=== PATIENT | female | born 1945 | race Caucasian/White ===

== ENCOUNTER 2016-10-29 20:35 | Observation (INO) | payer OTHER ==
[~2016-10-29] VITALS: Ht 170.2 cm; Wt 76.5 kg
[~2016-10-29 20:35] MED LIST: ASPIR 8181 M1 PO; ATORVASTATIN CA80 MG PO; CEFTIN250 MG PO; CEFTIN500 MG PO; CIPRO500 MG PO; CIPROFLOXACIN500 M1 PO; COZAAR25 MG PO; D-VERT25 MG PO; DAILY VITE1 EAC1 PO; DONEPEZIL HCL23 MG PO; FERROUS SULFAT324 M1 PO; FERROUS SULFAT325 MG PO; FLONASE16 G1 BOTH NARES; FLOVENT 22120 INHALA IH; GEMFIBROZIL600 MG PO; KEFLEX500 MG PO; LANTUS100 UNIT/1 SQ; LEVAQUIN750 MG PO; LEVEMIR100 UNIT/2 SC; LEXAPRO10 MG PO; LIPITOR80 MG PO; LOSARTAN POTASS25 MG PO; LOSARTAN POTASS50 MG PO; MACROBID100 MG PO; MULTIVITAMIN1 EAC1 PO; NAMENDA5 MG PO; NOVOLIN N100 UNITS/ SC; NOVOLOG100 UNIT/1 SQ; OMEPRAZOLE20 MG PO; OMEPRAZOLE40 M1 PO; PAIN & FEVER325 MG PO; PRINIVIL10 MG PO; PROVENTIL,2.5 MG/3 M IH; SEROQUEL300 MG PO; TOFRANIL25 MG PO; VENTOLIN HFA18 GM IH; VESICARE5 MG PO; VITAMIN B12-FO1 EACH PO
[2016-10-29 21:16] LABS: EOSINOPHIL COUNT 0.1 K/uL (0-0.3); HEMATOCRIT 28.2 % (36.0-46.0); IMMATURE GRANULOCYTE (%) 0.3 % (0.0-0.7); INSTRUMENT ABS NEUTROPHIL CT 4.7 K/uL; LYMPHOCYTE COUNT 0.7 K/uL (1.0-2.8); MCH 29.4 PG (29.0-34.0); MCHC 31.9 G/DL (30.0-36.0); MCV 92.2 FL (83-99); MEAN PLAT.VOLUME 10.4 uM^3 (9.5-12.4); MONOCYTE (%) 7.2 % (3-12); MONOCYTE COUNT 0.4 K/uL (0-0.8); NEUTROPHIL (%) 80.3 % (45-76); NEUTROPHIL COUNT 4.7 K/uL (1.8-6.4); PLATELET COUNT 145 K/uL (156-360); RBC DIS.WIDTH-CV 14.3 % (11.8-14.6); RBC DIS.WIDTH-SD 48.8 % (39-53); RED BLOOD COUNT 3.06 M/uL (3.80-5.20); WHITE BLOOD COUNT 5.9 K/uL (4.1-10.2)
[2016-10-29 21:25] LABS: INTER. NORMALIZED RATIO 1.1; PROTHROMBIN TIME 11.2 (9.2-11.2); PTT 29.3 (25-32)
[2016-10-29 21:27] LABS: CHLORIDE 115 mEq/L (99-109); POTASSIUM 3.9 mEq/L (3.7-5.4); SODIUM 141 mEq/L (136-147)
[2016-10-29 21:28] LABS: GLUCOSE 78 mg/dL (70-99)
[2016-10-29 21:30] LABS: ANION GAP 11 MEQ/L (2-14)
[2016-10-29 21:32] LABS: GFR ESTIMATE (CALCULATED) 15 mL/min/
[2016-10-29 21:33] LABS: UREA NITROGEN (BUN) 50 mg/dL (9-23)
[2016-10-29 21:37] LABS: TROP-I INTERPRETATION NEGATIVE; TROPONIN-I < 0.01 ng/mL (0.0-0.30)
[2016-10-29 22:19] LABS: ADD MIUA? YES; BILIRUBIN NEGATIVE; BLOOD LARGE; COLOR AMBER ((YELLOW)); GLUCOSE (STRIP) NEGATIVE; KETONES NEGATIVE; LEUKOCYTES LARGE; NITRITE NEGATIVE; PROTEIN (STRIP) 100; SPECIFIC GRAVITY 1.014 (1.000-1.030); UROBILINOGEN 0.2 MG/DL (0.2-1.0)
[2016-10-29 22:23] LABS: Estimated Average Glucose 166 mg/dL (70-123); HEMOGLOBIN A1c (GLYCOHEMOGLOB) 7.4 % HGB (Below 5.7)
[2016-10-29 22:26] LABS: HDL CHOLESTEROL 33 MG/DL (Desirable>=50); LDL CHOLESTEROL 25 mg/dL (Desirable<100); NON-HDL CHOLESTEROL 34 mg/dL (Desirable<160); TOTAL CHOLESTEROL 67 mg/dL (Desirable<200); TRIGLYCERIDES 44 MG/DL (Normal: <150)
[2016-10-29 22:32] LABS: EPITHELIAL CELLS 2+ /HPF; RED BLOOD CELLS TNTC /HPF (0-5); WHITE BLOOD CELLS TNTC /HPF (0-5)
[2016-10-29 22:33] LABS: BACTERIA 1+ /HPF; MUCUS NONE SEEN /LPF; OTHER RENAL CELLS; UCUL ADDED? YES
[2016-10-30] MEDS ORDERED: LEXAPRO10 MG PO (03:59)
[2016-10-30] MEDS ORDERED: DAILY VITE1 EAC1 PO (03:59)
[2016-10-30] MEDS ORDERED: ASPIR 8181 M1 PO (03:59)
[2016-10-30] MEDS ORDERED: LOSARTAN POTASS50 MG PO (04:00)
[2016-10-30] MEDS ORDERED: FERROCITE324 MG PO (04:00)
[2016-10-30] MEDS ORDERED: OMEPRAZOLE40 M1 PO (04:00)
[2016-10-30] MEDS ORDERED: LIPITOR80 MG PO (04:01)
[2016-10-30] MEDS ORDERED: QUETIAPINE FUM300 MG PO (04:01)
[2016-10-30] MEDS ORDERED: VENTOLIN HFA18 GM IH (04:01)
[2016-10-30] MEDS ORDERED: VESICARE5 MG PO ×2 (04:01→04:02)
[2016-10-30] MEDS ORDERED: ARNUITY ELLIP100 MCG IH (04:02)
[2016-10-30] MEDS ORDERED: LEVEMIR100 UNIT/2 SC (04:04)
[2016-10-30] MEDS ORDERED: NOVOLIN N100 UNITS/ SC (04:04)
[2016-10-30 04:38] VITALS: BP 127/60
[2016-10-30 08:55] VITALS: BP 109/52
[2016-10-30 10:01] LABS: HEMATOCRIT 30.7 % (36.0-46.0); MCH 29.1 PG (29.0-34.0); MCHC 30.9 G/DL (30.0-36.0); MCV 93.9 FL (83-99); MEAN PLAT.VOLUME 10.4 uM^3 (9.5-12.4); PLATELET COUNT 146 K/uL (156-360); RBC DIS.WIDTH-CV 14.5 % (11.8-14.6); RBC DIS.WIDTH-SD 49.6 % (39-53); RED BLOOD COUNT 3.27 M/uL (3.80-5.20); WHITE BLOOD COUNT 6.5 K/uL (4.1-10.2)
[2016-10-30 10:17] LABS: ANION GAP 9 MEQ/L (2-14); CHLORIDE 112 MEQ/L (99-109); MAGNESIUM 1.5 mg/dl (1.3-2.7); POTASSIUM 3.5 MEQ/L (3.7-5.4); SAMPLE HEMOLYSIS CHECK 0; SAMPLE ICTERIC CHECK 0; SAMPLE LIPEMIA CHECK 0; SODIUM 140 MEQ/L (136-147)
[2016-10-30 10:23] LABS: GFR ESTIMATE (CALCULATED) 17 mL/min/; GLUCOSE 80 mg/dL (70-99); UREA NITROGEN (BUN) 47 mg/dL (9-23)
[2016-10-30 10:27] LABS: TROP-I INTERPRETATION NEGATIVE; TROPONIN-I < 0.01 ng/mL (0.0-0.30)
[2016-10-30 10:58] VITALS: BP 126/53
[2016-10-30 11:01] VITALS: BP 132/70
[2016-10-30 11:07] LABS: C DIFF TOXIN NEGATIVE (NEGATIVE)
[2016-10-30 11:13] LABS: PROBE CHECK PASS; SPECIMEN PROCESSING CONTROL PASS
[2016-10-30] MEDS ORDERED: VANTIN200 MG PO (14:39)
== END 2016-10-30 16:10 | disposition home or self-care (01) ==
LOC: EME → EDBD 20:35 → EDOF 10-30 03:04 → 5WEST 10-30 03:04 → EDOF 10-30 03:04 → 5WEST 10-30 04:12
PROVIDERS: Emergency Medicine; Hospitalist
DX: N39.0 Urinary tract infection, site not specified (principal); R29.6 Repeated falls; R42 Dizziness and giddiness; M54.5 Low back pain; E11.9 Type 2 diabetes mellitus without complications; E78.5 Hyperlipidemia, unspecified; K21.9 Gastro-esophageal reflux disease without esophagitis; F03.90 Unspecified dementia, unspecified severity, without behavioral disturbance, psychotic disturbance, mood disturbance, and anxiety; J45.909 Unspecified asthma, uncomplicated; E86.0 Dehydration; I12.9 Hypertensive chronic kidney disease with stage 1 through stage 4 chronic kidney disease, or unspecified chronic kidney disease; N18.3 Chronic kidney disease, stage 3 (moderate); N28.9 Disorder of kidney and ureter, unspecified; R55 Syncope and collapse; M25.512 Pain in left shoulder; D63.1 Anemia in chronic kidney disease; F20.0 Paranoid schizophrenia; N31.9 Neuromuscular dysfunction of bladder, unspecified
CPT/HCPCS: 70450; 71020; 73030; 73502; 80048; 80061; 81003; 83036; 83735; 84484; 85025; 85027; 85610; 85730; 87077; 87086; 87186; 87493; 93005; 99281; 99285; G0378; G8978 GP CK; G8979 CJ; G8980 GP CK; G8987 CK; G8988 GO CJ; G8989 GO CK; J0696; J1644; J7030; J7050

== ENCOUNTER 2016-11-10 20:35 | Inpatient (IN) | payer OTHER ==
[~2016-11-10] VITALS: Ht 170.2 cm; Wt 73.1 kg
[~2016-11-10 20:35] MED LIST changes: +ARNUITY ELLIP100 MCG IH; +FERROCITE324 MG PO; +QUETIAPINE FUM300 MG PO; +VANTIN200 MG PO
[2016-11-10 21:09] LABS: EOSINOPHIL COUNT 0.2 K/uL (0-0.3); HEMATOCRIT 27.7 % (36.0-46.0); IMMATURE GRANULOCYTE (%) 0.3 % (0.0-0.7); INSTRUMENT ABS NEUTROPHIL CT 4.4 K/uL; LYMPHOCYTE COUNT 1.1 K/uL (1.0-2.8); MCH 29.4 PG (29.0-34.0); MCHC 31.4 G/DL (30.0-36.0); MCV 93.6 FL (83-99); MEAN PLAT.VOLUME 10.7 uM^3 (9.5-12.4); MONOCYTE (%) 5.6 % (3-12); MONOCYTE COUNT 0.3 K/uL (0-0.8); NEUTROPHIL (%) 72.7 % (45-76); NEUTROPHIL COUNT 4.4 K/uL (1.8-6.4); PLATELET COUNT 142 K/uL (156-360); RBC DIS.WIDTH-SD 47.6 % (39-53); RED BLOOD COUNT 2.96 M/uL (3.80-5.20)
[2016-11-10 21:24] LABS: CHLORIDE 109 mEq/L (99-109); POTASSIUM 4.3 mEq/L (3.7-5.4); SODIUM 136 mEq/L (136-147)
[2016-11-10 21:26] LABS: GLUCOSE 320 mg/dL (70-99)
[2016-11-10 21:28] LABS: ANION GAP 9 MEQ/L (2-14); TOTAL BILIRUBIN 0.2 mg/dL (0.0-1.0)
[2016-11-10 21:30] LABS: ALKALINE PHOSPHATASE 133 IU/L (3-129); GFR ESTIMATE (CALCULATED) 16 mL/min/
[2016-11-10 21:30] LABS: ADD MIUA? YES; BILIRUBIN NEGATIVE; BLOOD LARGE; COLOR YELLOW ((YELLOW)); GLUCOSE (STRIP) 50; KETONES NEGATIVE; LEUKOCYTES MODERATE; NITRITE NEGATIVE; PROTEIN (STRIP) 30; SPECIFIC GRAVITY 1.012 (1.000-1.030); UROBILINOGEN 0.2 MG/DL (0.2-1.0)
[2016-11-10 21:31] LABS: UREA NITROGEN (BUN) 44 mg/dL (9-23)
[2016-11-10 21:35] LABS: TROP-I INTERPRETATION NEGATIVE; TROPONIN-I < 0.01 ng/mL (0.0-0.30)
[2016-11-10 21:49] LABS: AMORPHOUS URATES CRYSTALS 3+; BACTERIA NONE SEEN /HPF; CASTS NONE SEEN /LPF; CRYSTALS PRESENT; EPITHELIAL CELLS NONE SEEN /HPF; MUCUS NONE SEEN /LPF; RED BLOOD CELLS TNTC /HPF (0-5); UCUL ADDED? NO
[2016-11-11 00:26] LABS: POINT-OF-CARE METER ID UU13113702
[2016-11-11 00:43] VITALS: BP 114/59
[2016-11-11 01:11] LABS: HDL CHOLESTEROL 36 MG/DL (Desirable>=50); LDL CHOLESTEROL 32 mg/dL (Desirable<100); NON-HDL CHOLESTEROL 41 mg/dL (Desirable<160); TOTAL CHOLESTEROL 77 mg/dL (Desirable<200); TRIGLYCERIDES 47 MG/DL (Normal: <150)
[2016-11-11] MEDS ORDERED: NAMENDA5 MG PO (03:41)
[2016-11-11] MEDS ORDERED: ARICEPT23 MG PO (03:42)
[2016-11-11] MEDS ORDERED: COZAAR25 MG PO (03:44)
[2016-11-11 03:45] VITALS: BP 110/59
[2016-11-11 07:08] LABS: ALKALINE PHOSPHATASE 110 IU/L (3-129); ANION GAP 8 MEQ/L (2-14); CHLORIDE 115 MEQ/L (99-109); GFR ESTIMATE (CALCULATED) 18 mL/min/; GLUCOSE 176 mg/dL (70-99); POTASSIUM 4.1 MEQ/L (3.7-5.4); SAMPLE HEMOLYSIS CHECK 0; SAMPLE ICTERIC CHECK 0; SAMPLE LIPEMIA CHECK 0; SODIUM 141 MEQ/L (136-147); TOTAL BILIRUBIN 0.2 MG/DL (0.0-1.0); UREA NITROGEN (BUN) 41 mg/dL (9-23)
[2016-11-11 07:27] LABS: Estimated Average Glucose 174 mg/dL (70-123); HEMOGLOBIN A1c (GLYCOHEMOGLOB) 7.7 % HGB (Below 5.7)
[2016-11-11 07:46] VITALS: BP 151/67
[2016-11-11 09:57] LABS: BASE EXCESS -6.3 mEq/L (-3 to +3); CARBOXY HGB 0 % (0-5); FI02 21 %; METHEMOGLOBIN 1.4 % (0-1.5); PCO2 36 mm Hg (35-45); PO2 81 mm Hg (80-100); SITE RR; pH 7.33 (7.35-7.45)
[2016-11-11 09:58] LABS: COMMENTS - BLOOD GASES A+C+; TOTAL RESP RATE 16 resp/min
[2016-11-11 11:25] VITALS: BP 112/57
[2016-11-11 15:30] VITALS: BP 101/58
[2016-11-11] MEDS ORDERED: IRON325 M1 PO (18:56)
[2016-11-11] MEDS ORDERED: NAMENDA10 MG PO (19:02)
[2016-11-11] MEDS ORDERED: VENTOLIN HFA18 GM IH (19:08)
[2016-11-11 19:44] VITALS: BP 120/57
[2016-11-11 20:49] LABS: POINT-OF-CARE METER ID UU14174225
[2016-11-12] VITALS (7 sets, daily range): BP systolic 108–139; BP diastolic 52–85
[2016-11-12 10:22] LABS: HEMATOCRIT 28.9 % (36.0-46.0); MCH 29.3 PG (29.0-34.0); MCHC 30.8 G/DL (30.0-36.0); MCV 95.1 FL (83-99); MEAN PLAT.VOLUME 11.1 uM^3 (9.5-12.4); PLATELET COUNT 125 K/uL (156-360); RED BLOOD COUNT 3.04 M/uL (3.80-5.20); WHITE BLOOD COUNT 3.8 K/uL (4.1-10.2)
[2016-11-12 10:48] LABS: ANION GAP 9 MEQ/L (2-14); CHLORIDE 114 MEQ/L (99-109); GFR ESTIMATE (CALCULATED) 21 mL/min/; GLUCOSE 187 mg/dL (70-99); POTASSIUM 4.5 MEQ/L (3.7-5.4); SAMPLE HEMOLYSIS CHECK 0; SAMPLE ICTERIC CHECK 0; SAMPLE LIPEMIA CHECK 0; SODIUM 144 MEQ/L (136-147); UREA NITROGEN (BUN) 41 mg/dL (9-23)
[2016-11-12] MEDS ORDERED: FLONASE16 G1 BOTH NARES (11:54)
[2016-11-12] MEDS ORDERED: BALMEX 11.3% D113 GM TP (11:55)
[2016-11-12] MEDS ORDERED: TRAMADOL HCL50 MG PO (11:56)
[2016-11-12 12:21] LABS: POINT-OF-CARE METER ID UU14174225
[2016-11-12 16:46] LABS: UR CREATININE CONCENTRATION 62.8 MG/DL
[2016-11-12 21:17] LABS: POINT-OF-CARE METER ID UU14174225
[2016-11-13 03:44] VITALS: BP 115/62
[2016-11-13 07:06] LABS: EOSINOPHIL (%) 6.4 % (0-5); EOSINOPHIL COUNT 0.3 K/uL (0-0.3); HEMATOCRIT 28.5 % (36.0-46.0); IMMATURE GRANULOCYTE (%) 0.2 % (0.0-0.7); INSTRUMENT ABS NEUTROPHIL CT 2.5 K/uL; LYMPHOCYTE COUNT 1.1 K/uL (1.0-2.8); MCH 29.4 PG (29.0-34.0); MCHC 31.2 G/DL (30.0-36.0); MCV 94.1 FL (83-99); MONOCYTE (%) 5.7 % (3-12); MONOCYTE COUNT 0.2 K/uL (0-0.8); NEUTROPHIL (%) 61.3 % (45-76); NEUTROPHIL COUNT 2.5 K/uL (1.8-6.4); PLATELET COUNT 143 K/uL (156-360); RBC DIS.WIDTH-SD 47.7 % (39-53); RED BLOOD COUNT 3.03 M/uL (3.80-5.20); WHITE BLOOD COUNT 4.1 K/uL (4.1-10.2)
[2016-11-13 07:26] VITALS: BP 130/74
[2016-11-13 07:34] LABS: ANION GAP 7 MEQ/L (2-14); CHLORIDE 114 MEQ/L (99-109); GFR ESTIMATE (CALCULATED) 19 mL/min/; GLUCOSE 144 mg/dL (70-99); MAGNESIUM 1.3 mg/dl (1.3-2.7); POTASSIUM 4.6 MEQ/L (3.7-5.4); SAMPLE HEMOLYSIS CHECK 0; SAMPLE ICTERIC CHECK 0; SAMPLE LIPEMIA CHECK 0; SODIUM 142 MEQ/L (136-147); UREA NITROGEN (BUN) 38 mg/dL (9-23); URIC ACID 6.2 mg/dL (3.1-9.2)
[2016-11-13 07:56] LABS: POINT-OF-CARE METER ID UU14188625
[2016-11-13 11:19] LABS: POINT-OF-CARE METER ID UU14188625
[2016-11-13 11:31] VITALS: BP 125/56
[2016-11-13 15:58] VITALS: BP 109/56
[2016-11-13 17:11] LABS: POINT-OF-CARE METER ID UU14188625
[2016-11-13 20:03] VITALS: BP 142/61
[2016-11-13 23:32] VITALS: BP 136/64
[2016-11-14 03:52] VITALS: BP 139/89
[2016-11-14 06:16] LABS: ANION GAP 8 MEQ/L (2-14); CHLORIDE 112 MEQ/L (99-109); GFR ESTIMATE (CALCULATED) 19 mL/min/; GLUCOSE 165 mg/dL (70-99); POTASSIUM 4.4 MEQ/L (3.7-5.4); SAMPLE HEMOLYSIS CHECK 0; SAMPLE ICTERIC CHECK 0; SAMPLE LIPEMIA CHECK 0; SODIUM 142 MEQ/L (136-147); UREA NITROGEN (BUN) 39 mg/dL (9-23)
[2016-11-14 08:03] VITALS: BP 145/76
[2016-11-14] MEDS ORDERED: CLOPIDOGREL75 MG PO (08:43)
[2016-11-14] MEDS ORDERED: AUGMENTIN875 MG PO (08:57)
[2016-11-14 11:34] VITALS: BP 135/60
[2016-11-14 15:20] VITALS: BP 107/58
== END 2016-11-14 16:30 | DRG 65 ==
LOC: EME → EDBD 20:35 → EME 20:35 → 5SOUTH 23:12 → EDOF 23:12 → 5SOUTH 11-11 00:22
PROVIDERS: Emergency Medicine; Hospitalist; Internal Medicine; Internal Medicine Nephrology; Physician Assistant Medical
DX: I63.9 Cerebral infarction, unspecified (principal); N17.9 Acute kidney failure, unspecified; G81.94 Hemiplegia, unspecified affecting left nondominant side; E87.2 Acidosis; N18.4 Chronic kidney disease, stage 4 (severe); F20.0 Paranoid schizophrenia; N13.30 Unspecified hydronephrosis; E86.0 Dehydration; E11.22 Type 2 diabetes mellitus with diabetic chronic kidney disease; E11.8 Type 2 diabetes mellitus with unspecified complications; E11.65 Type 2 diabetes mellitus with hyperglycemia; N18.9 Chronic kidney disease, unspecified; M25.512 Pain in left shoulder; W19.XXXA Unspecified fall, initial encounter; D64.9 Anemia, unspecified; E78.5 Hyperlipidemia, unspecified; R41.82 Altered mental status, unspecified; I12.9 Hypertensive chronic kidney disease with stage 1 through stage 4 chronic kidney disease, or unspecified chronic kidney disease; R32 Unspecified urinary incontinence; R29.6 Repeated falls; N39.0 Urinary tract infection, site not specified; K22.70 Barrett's esophagus without dysplasia; K21.9 Gastro-esophageal reflux disease without esophagitis; Y92.019 Unspecified place in single-family (private) house as the place of occurrence of the external cause; Z79.4 Long term (current) use of insulin; Y93.9 Activity, unspecified; Z88.8 Allergy status to other drugs, medicaments and biological substances; Z88.6 Allergy status to analgesic agent; Z91.040 Latex allergy status; Z87.440 Personal history of urinary (tract) infections
CPT/HCPCS: 36600; 70450; 70551; 71020; 73030; 76770; 80048; 80053; 80061; 81003; 82010; 82550; 82570; 82803; 82948; 83036; 83735; 84100; 84156; 84484; 84550; 85025; 85027; 87086; 92523 GN; 92610 GN; 93005; 93306; 93880; 97530 GP; 99281; 99285; G0378; J0696; J1644; J1815; J7030; J7050; J7120

== ENCOUNTER 2017-12-15 10:47 | Emergency (ER) | payer OTHER ==
[~2017-12-15] VITALS: Ht 170.2 cm; Wt 66.2 kg
[~2017-12-15 10:47] MED LIST changes: +ARICEPT23 MG PO; +AUGMENTIN875 MG PO; +BALMEX 11.3% D113 GM TP; +CLOPIDOGREL75 MG PO; +IRON325 M1 PO; +NAMENDA10 MG PO; +TRAMADOL HCL50 MG PO
[2017-12-15 11:25] LABS: BASOPHIL (%) 0.6 % (0-1); EOSINOPHIL (%) 1.1 % (0-5); HEMATOCRIT 29.8 % (36.0-46.0); HEMOGLOBIN 9.8 G/DL (11.9-15.5); IMMATURE GRANULOCYTE (%) 0.3 % (0.0-0.7); LYMPHOCYTE (%) 22.6 % (15-42); LYMPHOCYTE COUNT 0.8 K/uL (1.0-2.8); MCH 30.5 PG (29.0-34.0); MCHC 32.9 G/DL (30.0-36.0); MCV 92.8 FL (83-99); MONOCYTE (%) 13.4 % (3-12); MONOCYTE COUNT 0.5 K/uL (0-0.8); NEUTROPHIL COUNT 2.2 K/uL (1.8-6.4); PLATELET COUNT 154 K/uL (156-360); RBC DIS.WIDTH-CV 13.5 % (11.8-14.6); RBC DIS.WIDTH-SD 45.8 % (39-53); RED BLOOD COUNT 3.21 M/uL (3.80-5.20); WHITE BLOOD COUNT 3.6 K/uL (4.1-10.2)
[2017-12-15 11:33] LABS: CHLORIDE 112 mEq/L (99-109); POTASSIUM 4.5 mEq/L (3.7-5.4); SODIUM 141 mEq/L (136-147)
[2017-12-15 11:35] LABS: GLUCOSE 138 mg/dL (70-99)
[2017-12-15 11:39] LABS: CREATININE 3.1 mg/dL (0.6-1.3); GFR ESTIMATE (CALCULATED) 16 mL/min/
[2017-12-15 11:40] LABS: UREA NITROGEN (BUN) 48 mg/dL (9-23)
[2017-12-15 12:56] LABS: APPEARANCE CLOUDY ((CLEAR)); BILIRUBIN NEGATIVE; BLOOD MODERATE; COLOR YELLOW ((YELLOW)); GLUCOSE (STRIP) NEGATIVE; KETONES NEGATIVE; LEUKOCYTES LARGE; NITRITE NEGATIVE; PROTEIN (STRIP) 30; SPECIFIC GRAVITY 1.012 (1.000-1.030); UROBILINOGEN 0.2 MG/DL (0.2-1.0)
[2017-12-15 13:15] LABS: WHITE BLOOD CELLS TNTC /HPF (0-5)
[2017-12-15 13:16] LABS: BACTERIA 1+ /HPF; EPITHELIAL CELLS RARE /HPF; MUCUS NONE SEEN /LPF; UCUL ADDED? YES
[2017-12-15] MEDS ORDERED: BACTRIM,SEPT1 TABLET PO (13:45)
[2017-12-15 16:00] VITALS: BP 144/57
== END 2017-12-15 16:27 | disposition home or self-care (01) ==
LOC: EME 10:47
PROVIDERS: Emergency Medicine
PROC: 2W3EX1Z Immobilization of Right Hand using Splint (ICD-10-PCS; principal; 2017-12-15)
DX: N39.0 Urinary tract infection, site not specified (principal); F03.90 Unspecified dementia, unspecified severity, without behavioral disturbance, psychotic disturbance, mood disturbance, and anxiety; S62.344A Nondisplaced fracture of base of fourth metacarpal bone, right hand, initial encounter for closed fracture; S62.346A Nondisplaced fracture of base of fifth metacarpal bone, right hand, initial encounter for closed fracture; W06.XXXA Fall from bed, initial encounter; Y92.099 Unspecified place in other non-institutional residence as the place of occurrence of the external cause; Z86.73 Personal history of transient ischemic attack (TIA), and cerebral infarction without residual deficits; F20.9 Schizophrenia, unspecified; J45.909 Unspecified asthma, uncomplicated; E78.5 Hyperlipidemia, unspecified; I12.9 Hypertensive chronic kidney disease with stage 1 through stage 4 chronic kidney disease, or unspecified chronic kidney disease; E11.22 Type 2 diabetes mellitus with diabetic chronic kidney disease; N18.9 Chronic kidney disease, unspecified; Z79.4 Long term (current) use of insulin; K21.9 Gastro-esophageal reflux disease without esophagitis; Z88.5 Allergy status to narcotic agent; Z91.040 Latex allergy status
CPT/HCPCS: 70450; 71045; 73130; 80048; 81003; 85025; 87077; 87086; 87186; 99281; 99285; J0696

== ENCOUNTER 2017-12-22 13:24 | Inpatient (IN) | payer OTHER ==
[~2017-12-22] VITALS: Ht 170.2 cm; Wt 77.5 kg
[~2017-12-22 13:24] MED LIST changes: +BACTRIM,SEPT1 TABLET PO; +NOVOLOG 10100 UNITS/ SC
[2017-12-22 13:53] LABS: HEMATOCRIT 30.2 % (36.0-46.0); HEMOGLOBIN 9.9 G/DL (11.9-15.5); MCHC 32.8 G/DL (30.0-36.0); MCV 91.5 FL (83-99); PLATELET COUNT 171 K/uL (156-360); RBC DIS.WIDTH-SD 46.8 % (39-53); WHITE BLOOD COUNT 3.9 K/uL (4.1-10.2)
[2017-12-22 14:01] LABS: CHLORIDE 113 mEq/L (99-109); POTASSIUM 5.2 mEq/L (3.7-5.4); SODIUM 141 mEq/L (136-147)
[2017-12-22 14:03] LABS: GLUCOSE 314 mg/dL (70-99)
[2017-12-22 14:07] LABS: CREATININE 4.2 mg/dL (0.6-1.3); GFR ESTIMATE (CALCULATED) 11 mL/min/
[2017-12-22 14:08] LABS: UREA NITROGEN (BUN) 53 mg/dL (9-23)
[2017-12-22 14:13] LABS: TROP-I INTERPRETATION NEGATIVE; TROPONIN-I 0.02 ng/mL (0.0-0.30)
[2017-12-22 14:48] LABS: APPEARANCE CLOUDY ((CLEAR)); BILIRUBIN NEGATIVE; BLOOD LARGE; COLOR AMBER ((YELLOW)); GLUCOSE (STRIP) 150; KETONES NEGATIVE; LEUKOCYTES LARGE; NITRITE NEGATIVE; PROTEIN (STRIP) 100; SPECIFIC GRAVITY 1.014 (1.000-1.030); UROBILINOGEN 0.2 MG/DL (0.2-1.0)
[2017-12-22 15:10] LABS: EPITHELIAL CELLS RARE /HPF; RED BLOOD CELLS TNTC /HPF (0-5)
[2017-12-22 15:11] LABS: BACTERIA RARE /HPF; UCUL ADDED? YES
[2017-12-22] MEDS ORDERED: NOVOLIN,HU100 UNITS/ SC (18:54)
[2017-12-22] MEDS ORDERED: MEMANTINE HCL10 MG PO (18:55)
[2017-12-22] MEDS ORDERED: ESCITALOPRAM OX10 MG PO (18:55)
[2017-12-22] MEDS ORDERED: ACETAMINOPHEN325 M1 PO (18:56)
[2017-12-22] MEDS ORDERED: DARIFENACIN ER7.5 MG PO (18:57)
[2017-12-22] MEDS ORDERED: LOSARTAN POTASS25 MG PO (18:57)
[2017-12-22] MEDS ORDERED: ASPIRIN325 MG PO (18:58)
[2017-12-22] MEDS ORDERED: DONEPEZIL HCL23 MG PO (18:58)
[2017-12-22] MEDS ORDERED: CLOTRIMAZOLE AF15 G2 TP (18:59)
[2017-12-22] MEDS ORDERED: CRANBERRY500 M3 PO (19:00)
[2017-12-22] MEDS ORDERED: TRAMADOL HCL50 MG PO (19:08)
[2017-12-22 21:00] VITALS: BP 123/87
[2017-12-23] VITALS: BP 118/54
[2017-12-23 01:00] LABS: CHLORIDE 118 mEq/L (99-109); SODIUM 141 mEq/L (136-147)
[2017-12-23 01:02] LABS: GLUCOSE 150 mg/dL (70-99); POTASSIUM 3.6 mEq/L (3.7-5.4)
[2017-12-23 01:06] LABS: UREA NITROGEN (BUN) 45 mg/dL (9-23)
[2017-12-23 01:16] LABS: CREATININE 3.4 mg/dL (0.6-1.3); GFR ESTIMATE (CALCULATED) 14 mL/min/
[2017-12-23 04:00] VITALS: BP 119/83
[2017-12-23 06:45] LABS: HEMATOCRIT 26.8 % (36.0-46.0); HEMOGLOBIN 8.4 G/DL (11.9-15.5); MCH 29.4 PG (29.0-34.0); MCHC 31.3 G/DL (30.0-36.0); MCV 93.7 FL (83-99); RBC DIS.WIDTH-SD 47.8 % (39-53); RED BLOOD COUNT 2.86 M/uL (3.80-5.20); WHITE BLOOD COUNT 2.6 K/uL (4.1-10.2)
[2017-12-23 06:55] LABS: CHLORIDE 122 MEQ/L (99-109); CREATININE 3.4 MG/DL (0.6-1.3); GFR ESTIMATE (CALCULATED) 14 mL/min/; POTASSIUM 3.9 MEQ/L (3.7-5.4); SODIUM 148 MEQ/L (136-147); UREA NITROGEN (BUN) 42 mg/dL (9-23)
[2017-12-23 06:59] LABS: GLUCOSE 79 mg/dL (70-99)
[2017-12-23 07:20] LABS: PLATELET COUNT 118 K/uL (156-360)
[2017-12-23 07:42] VITALS: BP 115/68
[2017-12-23 12:11] VITALS: BP 124/59
[2017-12-23 14:03] LABS: PCO2 28 mm Hg (35-45); PO2 100 mm Hg (80-100); pH 7.31 (7.35-7.45)
[2017-12-23 14:04] LABS: BASE EXCESS -10.9 mEq/L (-3 to +3); BICARBONATE 14.1 mEq/L (22-26); CARBOXY HGB 0 % (0-5); METHEMOGLOBIN 0.4 % (0-1.5)
[2017-12-23 14:05] LABS: COMMENTS - BLOOD GASES A+C+; FI02 21 %; SITE LR
[2017-12-23 15:27] LABS: CHLORIDE 117 MEQ/L (99-109); CREATININE 3.2 MG/DL (0.6-1.3); GFR ESTIMATE (CALCULATED) 15 mL/min/; GLUCOSE 232 mg/dL (70-99); POTASSIUM 4.2 MEQ/L (3.7-5.4); SODIUM 142 MEQ/L (136-147); UREA NITROGEN (BUN) 42 mg/dL (9-23)
[2017-12-23 15:51] VITALS: BP 137/64
[2017-12-23 17:13] LABS: ALBUMIN 2.8 G/DL (3.2-4.8); ALKALINE PHOSPHATASE 107 IU/L (3-129); ALT (GPT) 14 IU/L (3-49); AST (GOT) 18 IU/L (2-34); DIRECT BILIRUBIN 0.1 mg/dL (0.0-0.3); TOTAL PROTEIN 4.7 G/DL (6.4-8.3)
[2017-12-23 17:21] LABS: THYROTROPIN (TSH) 3.6 MIU/L (0.4-5.5)
[2017-12-23 19:43] VITALS: BP 146/61
[2017-12-24] VITALS: BP 121/57
[2017-12-24 03:42] VITALS: BP 105/98
[2017-12-24 05:21] LABS: BASOPHIL (%) 0.4 % (0-1); EOSINOPHIL COUNT 0.1 K/uL (0-0.3); HEMATOCRIT 26.2 % (36.0-46.0); HEMOGLOBIN 8.2 G/DL (11.9-15.5); IMMATURE GRANULOCYTE (%) 0.4 % (0.0-0.7); LYMPHOCYTE (%) 27.4 % (15-42); LYMPHOCYTE COUNT 0.7 K/uL (1.0-2.8); MCH 29.5 PG (29.0-34.0); MCHC 31.3 G/DL (30.0-36.0); MCV 94.2 FL (83-99); MONOCYTE COUNT 0.2 K/uL (0-0.8); NEUTROPHIL (%) 60.8 % (45-76); NEUTROPHIL COUNT 1.6 K/uL (1.8-6.4); PLATELET COUNT 106 K/uL (156-360); RBC DIS.WIDTH-CV 13.9 % (11.8-14.6); RBC DIS.WIDTH-SD 48.1 % (39-53); RED BLOOD COUNT 2.78 M/uL (3.80-5.20); WHITE BLOOD COUNT 2.6 K/uL (4.1-10.2)
[2017-12-24 06:19] LABS: CHLORIDE 118 MEQ/L (99-109); GFR ESTIMATE (CALCULATED) 16 mL/min/; POTASSIUM 4.2 MEQ/L (3.7-5.4); SODIUM 143 MEQ/L (136-147); UREA NITROGEN (BUN) 36 mg/dL (9-23)
[2017-12-24 06:21] LABS: GLUCOSE 101 mg/dL (70-99)
[2017-12-24 06:30] LABS: HEMOGLOBIN A1c (GLYCOHEMOGLOB) 6.3 % (Below 5.7)
[2017-12-24 07:44] VITALS: BP 127/60
[2017-12-24 09:41] LABS: FOLIC ACID (FOLATE) > 22.0 NG/ML (5.0-22.0)
[2017-12-24 11:46] VITALS: BP 150/60
[2017-12-24 15:13] VITALS: BP 138/62
[2017-12-25] VITALS: BP 156/66
[2017-12-25 05:46] LABS: BASOPHIL (%) 0.7 % (0-1); EOSINOPHIL (%) 2.5 % (0-5); EOSINOPHIL COUNT 0.1 K/uL (0-0.3); HEMATOCRIT 28.8 % (36.0-46.0); IMMATURE GRANULOCYTE (%) 0.2 % (0.0-0.7); LYMPHOCYTE (%) 19.4 % (15-42); LYMPHOCYTE COUNT 0.9 K/uL (1.0-2.8); MCH 29.4 PG (29.0-34.0); MCHC 31.3 G/DL (30.0-36.0); MCV 94.1 FL (83-99); MONOCYTE (%) 7.2 % (3-12); MONOCYTE COUNT 0.3 K/uL (0-0.8); NEUTROPHIL COUNT 3.1 K/uL (1.8-6.4); PLATELET COUNT 137 K/uL (156-360); RBC DIS.WIDTH-CV 13.8 % (11.8-14.6); RBC DIS.WIDTH-SD 46.6 % (39-53); RED BLOOD COUNT 3.06 M/uL (3.80-5.20); WHITE BLOOD COUNT 4.4 K/uL (4.1-10.2)
[2017-12-25 06:12] LABS: CHLORIDE 115 MEQ/L (99-109); CREATININE 2.6 MG/DL (0.6-1.3); GFR ESTIMATE (CALCULATED) 19 mL/min/; GLUCOSE 87 mg/dL (70-99); POTASSIUM 4.3 MEQ/L (3.7-5.4); SODIUM 141 MEQ/L (136-147); UREA NITROGEN (BUN) 33 mg/dL (9-23)
[2017-12-25 07:52] VITALS: BP 160/73
[2017-12-26] VITALS: BP 160/66
[2017-12-26 05:41] LABS: BASOPHIL (%) 0.6 % (0-1); EOSINOPHIL (%) 2.5 % (0-5); EOSINOPHIL COUNT 0.1 K/uL (0-0.3); HEMATOCRIT 28.7 % (36.0-46.0); HEMOGLOBIN 9.1 G/DL (11.9-15.5); IMMATURE GRANULOCYTE (%) 0.3 % (0.0-0.7); LYMPHOCYTE (%) 26.9 % (15-42); MCH 29.6 PG (29.0-34.0); MCHC 31.7 G/DL (30.0-36.0); MCV 93.5 FL (83-99); MONOCYTE (%) 9.2 % (3-12); MONOCYTE COUNT 0.3 K/uL (0-0.8); NEUTROPHIL (%) 60.5 % (45-76); NEUTROPHIL COUNT 2.2 K/uL (1.8-6.4); PLATELET COUNT 128 K/uL (156-360); RBC DIS.WIDTH-CV 13.7 % (11.8-14.6); RED BLOOD COUNT 3.07 M/uL (3.80-5.20); WHITE BLOOD COUNT 3.6 K/uL (4.1-10.2)
[2017-12-26 05:59] LABS: CHLORIDE 121 MEQ/L (99-109); CREATININE 2.4 MG/DL (0.6-1.3); GFR ESTIMATE (CALCULATED) 21 mL/min/; GLUCOSE 122 mg/dL (70-99); POTASSIUM 4.4 MEQ/L (3.7-5.4); SODIUM 144 MEQ/L (136-147); UREA NITROGEN (BUN) 34 mg/dL (9-23)
[2017-12-26 07:07] VITALS: BP 133/60
[2017-12-26 15:01] VITALS: BP 126/64
[2017-12-26 23:49] VITALS: BP 120/59
[2017-12-27 06:28] LABS: BASOPHIL (%) 0.4 % (0-1); EOSINOPHIL (%) 2.2 % (0-5); EOSINOPHIL COUNT 0.1 K/uL (0-0.3); HEMATOCRIT 28.9 % (36.0-46.0); HEMOGLOBIN 9.2 G/DL (11.9-15.5); IMMATURE GRANULOCYTE (%) 0.4 % (0.0-0.7); LYMPHOCYTE (%) 21.8 % (15-42); MCH 29.3 PG (29.0-34.0); MCHC 31.8 G/DL (30.0-36.0); MONOCYTE (%) 6.4 % (3-12); MONOCYTE COUNT 0.3 K/uL (0-0.8); NEUTROPHIL (%) 68.8 % (45-76); NEUTROPHIL COUNT 3.1 K/uL (1.8-6.4); PLATELET COUNT 149 K/uL (156-360); RBC DIS.WIDTH-CV 13.8 % (11.8-14.6); RBC DIS.WIDTH-SD 46.8 % (39-53); RED BLOOD COUNT 3.14 M/uL (3.80-5.20); WHITE BLOOD COUNT 4.5 K/uL (4.1-10.2)
[2017-12-27 07:03] VITALS: BP 166/68
[2017-12-27 07:23] LABS: CHLORIDE 114 MEQ/L (99-109); CREATININE 2.4 MG/DL (0.6-1.3); GFR ESTIMATE (CALCULATED) 21 mL/min/; GLUCOSE 155 mg/dL (70-99); POTASSIUM 4.4 MEQ/L (3.7-5.4); SODIUM 141 MEQ/L (136-147); UREA NITROGEN (BUN) 33 mg/dL (9-23)
[2017-12-27 14:59] VITALS: BP 154/71
[2017-12-28 02:22] VITALS: BP 131/53
[2017-12-28 05:41] LABS: BASOPHIL (%) 0.8 % (0-1); EOSINOPHIL (%) 3.1 % (0-5); EOSINOPHIL COUNT 0.1 K/uL (0-0.3); HEMATOCRIT 26.8 % (36.0-46.0); HEMOGLOBIN 8.7 G/DL (11.9-15.5); IMMATURE GRANULOCYTE (%) 0.6 % (0.0-0.7); LYMPHOCYTE (%) 41.4 % (15-42); LYMPHOCYTE COUNT 1.5 K/uL (1.0-2.8); MCHC 32.5 G/DL (30.0-36.0); MCV 92.4 FL (83-99); MONOCYTE (%) 8.3 % (3-12); MONOCYTE COUNT 0.3 K/uL (0-0.8); NEUTROPHIL (%) 45.8 % (45-76); NEUTROPHIL COUNT 1.7 K/uL (1.8-6.4); PLATELET COUNT 138 K/uL (156-360); RBC DIS.WIDTH-SD 47.2 % (39-53); WHITE BLOOD COUNT 3.6 K/uL (4.1-10.2)
[2017-12-28 06:00] LABS: CHLORIDE 115 MEQ/L (99-109); CREATININE 2.4 MG/DL (0.6-1.3); GFR ESTIMATE (CALCULATED) 21 mL/min/; GLUCOSE 152 mg/dL (70-99); POTASSIUM 4.1 MEQ/L (3.7-5.4); SODIUM 145 MEQ/L (136-147); UREA NITROGEN (BUN) 35 mg/dL (9-23)
[2017-12-28 07:54] VITALS: BP 158/67
[2017-12-28] MEDS ORDERED: QUETIAPINE FUMA50 MG PO (14:07)
[2017-12-28] MEDS ORDERED: DONEPEZIL HCL10 MG PO (14:07)
[2017-12-28] MEDS ORDERED: CIPROFLOXACIN250 MG PO (14:07)
[2017-12-28] MEDS ORDERED: LEVEMIR100 UNIT/2 SC (14:08)
[2017-12-28] MEDS ORDERED: SOD CITRATE-CI473 ML PO (14:08)
[2017-12-28] MEDS ORDERED: DITROPAN5 MG PO (14:09)
[2017-12-28 15:10] VITALS: BP 135/65
== END 2017-12-28 15:56 | DRG 871 ==
LOC: EME 13:24 → 5SOUTH 18:43 → EDOF 18:43 → ENRESERV 18:49 → 5SOUTH 20:50
PROVIDERS: Emergency Medicine; Hospitalist; Internal Medicine; Internal Medicine Nephrology
DX: A41.9 Sepsis, unspecified organism (principal); G93.41 Metabolic encephalopathy; N17.9 Acute kidney failure, unspecified; N13.6 Pyonephrosis; I12.0 Hypertensive chronic kidney disease with stage 5 chronic kidney disease or end stage renal disease; F05 Delirium due to known physiological condition; D61.818 Other pancytopenia; E87.2 Acidosis; N18.5 Chronic kidney disease, stage 5; E11.22 Type 2 diabetes mellitus with diabetic chronic kidney disease; E78.5 Hyperlipidemia, unspecified; E87.0 Hyperosmolality and hypernatremia; B96.20 Unspecified Escherichia coli [E. coli] as the cause of diseases classified elsewhere; G30.9 Alzheimer's disease, unspecified; J45.909 Unspecified asthma, uncomplicated; N31.9 Neuromuscular dysfunction of bladder, unspecified; K21.9 Gastro-esophageal reflux disease without esophagitis; F20.9 Schizophrenia, unspecified; E87.8 Other disorders of electrolyte and fluid balance, not elsewhere classified; F02.80 Dementia in other diseases classified elsewhere, unspecified severity, without behavioral disturbance, psychotic disturbance, mood disturbance, and anxiety; R41.9 Unspecified symptoms and signs involving cognitive functions and awareness; R56.9 Unspecified convulsions; F13.239 Sedative, hypnotic or anxiolytic dependence with withdrawal, unspecified; N39.46 Mixed incontinence; M21.079 Valgus deformity, not elsewhere classified, unspecified ankle; W19.XXXD Unspecified fall, subsequent encounter; Z87.440 Personal history of urinary (tract) infections; Z79.4 Long term (current) use of insulin; S62.344G Nondisplaced fracture of base of fourth metacarpal bone, right hand, subsequent encounter for fracture with delayed healing; S62.346G Nondisplaced fracture of base of fifth metacarpal bone, right hand, subsequent encounter for fracture with delayed healing; Z86.73 Personal history of transient ischemic attack (TIA), and cerebral infarction without residual deficits; Z80.0 Family history of malignant neoplasm of digestive organs; Z86.72 Personal history of thrombophlebitis
CPT/HCPCS: 36600; 70450; 71045; 73130; 74176; 80048; 80048 91; 80076; 81003; 82140; 82607; 82746; 82803; 82948; 83036; 83605; 84443; 84484; 85025; 85027; 87040; 87086 GA; 93005; 99202; 99281; 99285; J0696; J0881; J1644; J1815; J7030